=== PATIENT | male | born 1945 | race Two or more races ===

== ENCOUNTER → 2018-04-09 | Outpatient (CLI) | payer MEDICARE, MEDICAID | END | disposition home or self-care (01) | LOC: Rad HDHVI 13:08 | PROVIDERS: ATTEND Internal Medicine Cardiovascular Disease | DX: R07.9 Chest pain, unspecified (principal); R06.02 Shortness of breath | CPT/HCPCS: 93306 ==

== ENCOUNTER → 2018-04-30 | Outpatient (CLI) | payer MEDICARE, MEDICAID ==
[~2018-04-30] VITALS: Ht 180.3 cm; Wt 85.7 kg
== END | disposition home or self-care (01) ==
LOC: Rad HDHVI 09:24
PROVIDERS: ATTEND Internal Medicine Cardiovascular Disease
DX: E29.1 Testicular hypofunction (principal); M33.20 Polymyositis, organ involvement unspecified; R06.02 Shortness of breath; R07.89 Other chest pain
CPT/HCPCS: 78452; 93017; 96374; A9500